=== PATIENT | male | born 2000 | race Two or more races ===

== ENCOUNTER 2025-03-07 13:20 | Emergency (ER) | payer MEDICAID, SELFPAY ==
[2025-03-07 13:49] VITALS: BP 128/82; PULSE 104; RESP 18; TEMP 37.1; O2SAT 96
--- NOTE | 2025-03-07 13:53 | PD.EDSKIN ---
ED Skin Abcess FB-RME/HPI General Chief complaint: Animal Bite Stated complaint: Tick bite Time Seen by Provider: 03/07/25 13:27 Arrival date/time: 03/07/25 13:20 24-year-old male presents to the emergency department today with concerns for insect bite to the right forearm he reports he believes that he had a tick on his arm which he pulled off. Patient reports this happened yesterday and believes that the tick was on for less than 24 hours Limitations: no limitations Related Data Home Medications ?Medication ?Instructions ?Recorded ?Confirmed buspirone 15 mg tablet 15 mg PO BID 01/04/23 01/04/23 escitalopram oxalate 20 mg tablet 20 mg PO DAILY 01/04/23 01/04/23 fluoxetine 20 mg capsule 20 mg PO DAILY 01/04/23 01/04/23 Previous Rx's ?Medication ?Instructions ?Recorded acetaminophen 300 mg-codeine 30 mg 1 tab PO BID PRN pain #10 tabs 01/29/23 tablet amoxicillin 875 mg-potassium 1 tab PO BID #14 tabs 01/29/23 clavulanate 125 mg tablet ferrous sulfate 325 mg (65 mg 325 mg PO BID #90 tabs 01/29/23 iron) tablet clindamycin HCl 300 mg capsule 300 mg PO TID #15 caps 12/03/23 hydrocodone 5 mg-acetaminophen 325 1 tab PO BID PRN pain #6 tabs 12/03/23 mg tablet hydrocortisone acetate 25 mg 25 mg [place] BID #24 ea 12/03/23 rectal suppository (Anusol-HC) Allergies Allergy/AdvReac Type Severity Reaction Status Date / Time No Known Allergies Allergy Verified 03/07/25 13:22 Review of Systems Review of Systems Systems Reviewed: All systems reviewed, normal except as documented Constitutional Constitutional: Reports system reviewed and no additional complaints, except as documented, Denies fever(s) and Denies headache(s) Eyes Eyes: Reports system reviewed and no additional complaints, except as documented and Denies blurry vision ENT Ears, Nose, Mouth, and Throat: Reports system reviewed and no additional complaints, except as documented, Denies headache(s), Denies nasal congestion and Denies nasal discharge Cardiovascular Cardiovascular: Reports system reviewed and no additional complaints, except as documented, Denies chest pain and Denies dyspnea Respiratory Respiratory: Reports system reviewed and no additional complaints, except as documented, Denies chest congestion, Denies cough and Denies dyspnea Gastrointestinal Gastrointestinal: Reports system reviewed and no additional complaints, except as documented and Denies abdominal pain Integumentary/Breasts Skin/Breast: Reports system reviewed and no additional complaints, except as documented, Denies rash and Reports other (Insect bite right forearm) Neurologic Neurologic: Reports system reviewed and no additional complaints, except as documented, Reports as per HPI and Denies headache(s) Past Medical History Past Medical History CARDIAC: Negative Cardiac Disorders or Congestive Heart Failure RESPIRATORY: Negative Chronic Obstructive Pulmonary Disease (COPD) or Asthma GENITOURINARY: Negative Renal Disease ENDOCRINE: Negative Diabetes Mellitus Type 1 or Diabetes Mellitus Type 2 HEMATOLOGIC: Negative Sickle Cell Disease PSYCHO/SOCIAL: Positive Psychiatric Problems OTHER HISTORY: Negative Autoimmune Disease Family History FAMILY HISTORY: Negative Family Psychiatric Problems, Family Respiratory Disorders, Family Cardiac Disorders, Family Gastrointestinal Problems, Family Cancer, Family Surgery or Family Anesthesia Reaction Social History SMOKING STATUS: Light (< 1 pack/day) SUBSTANCE USE: marijuana, crack/cocaine and methamphetamine ED Exam General Limitations: Present no limitations General appearance: Present alert and in no apparent distress Head Head exam: Present atraumatic Eye Eye exam: Present normal appearance, PERRL and EOMI ENT ENT exam: Present normal exam, normal oropharynx and mucous membranes moist Neck Neck exam: Present normal inspection, full ROM and trachea midline Chest Chest inspection: Present normal inspection and symmetric chest wall rise Respiratory Respiratory exam: Present normal lung sounds bilaterally Cardiovascular Cardiovascular exam: Present regular rate, normal rhythm and normal heart sounds Abdominal Exam Abdominal exam: Present soft and normal bowel sounds Extremities Exam Extremities exam: Present full ROM, tenderness and normal capillary refill Back Exam Back exam: Present normal inspection and full ROM Neurological Exam Neurological exam: Present alert, oriented X3 and CN II-XII intact Psychiatric Psychiatric exam: Present normal affect and normal mood Skin Skin exam: Present warm, dry and other (Insect bite right arm) Course Quality Measures none Orders Category Date Time Status Doxycycline [Vibramycin] Med 03/07/25 13:53 Discontinued 200 mg PO X1 ONE Vital Signs Vital signs: Vital Signs Temperature 98.8 F 03/07/25 13:49 Pulse Rate 104 H 03/07/25 13:49 Respiratory Rate 18 03/07/25 13:49 Blood Pressure 128/82 03/07/25 13:49 Pulse Oximetry (%) 96 03/07/25 13:49 Oxygen Delivery Method Room Air 03/07/25 13:49 O2 saturation 96% r.a wnl Skin / Abscess / Foreign Body MDM Narrative MDM Narrative:: 24-year-old male presents to the emergency department today with concerns for insect bite to the right forearm he reports he believes that he had a tick on his arm which he pulled off. Patient reports this happened yesterday and believes that the tick was on for less than 24 hours On exam patient is no evidence of anaphylaxis no evidence of infection Patient was given 1 dose of doxycycline for prophylaxis for Lyme's disease Patient discharged home in no distress to follow-up with primary care doctor in the next 24 to 48 hours and for any worsening symptoms to return to the ER immediately Patient data External records reviewed:: [facility] previous records Clinical information provided by:: patient Social determinants that could affect healthcare access:: none Patient has the following chronic illnesses:: None How is presenting disease/condition affected by chronic disease/condition?: no chronic disease Evaluation data The following diagnostics were reviewed and interpreted by me:: other (specify) (N/A) Lab and/or radiology exams considered but not ordered:: N/A Interpretation Summary: N/A Medications / Prescriptions Medications or Prescriptions considered but not ordered:: Given Medication administrations:: Medication Administration History Discontinued Medications Doxycycline Hyclate (Doxycycline 100 Mg Tablet) 200 mg PO X1 ONE Stop: 03/07/25 13:54 Last Admin: 03/07/25 14:00 Dose: 200 mg Documented By: Given Consultations Consultation(s) initiated? (list below): No Diagnosis Skin/Abscess Differential Diagnosis: abscess of skin or subcutaneous tissue and cellulitis Most likely diagnosis given after review of the tests above:: Tick bite right arm Admission Indicated Admission indicated?: not indicated Admission Request Was there a request for admission?: No Disposition Plan Disposition Plan: Discharge Discharge Attestation Discharge Attestation: The patient and all family members were given an opportunity to ask questions and understood the discharge instructions. Discharge instructions specifically effects, indications for sooner follow up or return to the emergency department, and the expected course of current diagnosis. Patient condition: Stable Discharge Plan Plan Patient Disposition: HOME (Self Care) Discharge Disposition comment: Stable Prescriptions/Referrals Prescriptions/Med Rec: No Action fluoxetine 20 mg capsule 20 mg PO DAILY Patient Comments: TAKE 1 CAPSULE BY MOUTH ONCE DAILY FOR 30 DAYS buspirone 15 mg tablet 15 mg PO BID Patient Comments: TAKE 1 TABLET BY MOUTH TWICE DAILY escitalopram oxalate 20 mg tablet 20 mg PO DAILY Patient Comments: TAKE 1 TABLET BY MOUTH ONCE DAILY ferrous sulfate 325 mg (65 mg iron) tablet 325 mg PO BID Qty: 90 0RF amoxicillin-pot clavulanate 875-125 mg tablet 1 tab PO BID Qty: 14 0RF acetaminophen-codeine 300-30 mg tablet 1 tab PO BID PRN (Reason: pain) Qty: 10 0RF hydrocodone-acetaminophen 5-325 mg tablet 1 tab PO BID MDD 10 PRN (Reason: pain) Qty: 6 0RF hydrocortisone acetate [Anusol-HC] 25 mg suppository 25 mg [place] BID Qty: 24 0RF clindamycin HCl 300 mg capsule 300 mg PO TID Qty: 15 0RF Problem List Clinical Impression: Tick bite of right forearm Patient/Caregiver Discharge Instructions Education Materials: ED Bite Tick Abx Tx Additional Instructions: Please follow up with your primary care doctor in the next 24-48hrs for any worsening symptoms return here immediately Print Language: Bulgarian Stand Alone Forms: Carmen Award Info., Patient Portal Info Letter PA/CREDIT MANAGER Supervising Physician PA/CREDIT MANAGER Supervising Physician: dr montalvo
[2025-03-07] MEDS: DOXYCYCLINE 100 MG TABLET 200 MG PO (14:00)
== END 2025-03-07 14:30 | disposition home or self-care (01) ==
LOC: SERX 14:40
PROVIDERS: Emergency Provider Emergency Medicine
DX: S50.861A Insect bite (nonvenomous) of right forearm, initial encounter (principal); W57.XXXA Bitten or stung by nonvenomous insect and other nonvenomous arthropods, initial encounter
CPT/HCPCS: 99282; A9270

== ENCOUNTER 2025-03-17 00:04 | Emergency (ER) | payer MEDICAID, SELFPAY ==
[2025-03-17 00:06] VITALS: BMI 34.0
[2025-03-17 00:31] VITALS: BP 108/66; PULSE 90; RESP 20; TEMP 36.4; O2SAT 97
--- NOTE | 2025-03-17 00:49 | XR_ITS ---
Examination: CT abdomen with intravenous contrast CT pelvis with intravenous contrast 2-D coronal reconstructions 2-D sagittal reconstructions Date and time of exam:March 17, 2025 0432 hours Comparison December 03, 2023 INDICATIONS: Abdominal pain and urinary retention today. CTDI: vol (mGy) 21 DLP: (mGycm) 1311 Technique: Multiple axial sections of the abdomen and pelvis have been obtained. 64 slice high-resolution scanner used. 3 mm axial sections have been obtained, post intravenous injection 60 cc of Isovue 370 2-D sagittal, coronal reconstructions obtained. Low dose protocols were performed. One or more of the following dose reduction techniques were used; automated exposure control, adjustment of the mA and/or KV according to patient size, use of iterative reconstruction technique. Findings: No focal liver or splenic lesions Contracted gallbladder No pancreatic or adrenal mass. No renal or ureteral calculi, no hydronephrosis Aorta normal size Tiny fat-containing umbilical hernia Normal appendix No bowel obstruction No diverticulitis Urinary bladder Saavedra catheter, irregular wall thickening of the urinary bladder with air density in the urinary bladder No prostatomegaly IMPRESSION: Cystitis pattern
--- NOTE | 2025-03-17 00:51 | PD.EDRME ---
Rapid Medical Screening Exam RME Arrival date/time: 03/17/25 00:04 24M with history of psych, drug, and alcohol use presents to ED with several hours of urinary retention and RLQ pain. Patient admits doing lines of meth today. Chief Complaint: Abdominal Pain Vital signs: Vital Signs Temperature 97.6 F 03/17/25 00:31 Pulse Rate 90 03/17/25 00:31 Respiratory Rate 20 03/17/25 00:31 Blood Pressure 108/66 03/17/25 00:31 Pulse Oximetry (%) 97 03/17/25 00:31 Oxygen Delivery Method Room Air 03/17/25 00:31
[2025-03-17 01:26] LABS: Basophils # (Auto) 0.1 Thou/mm3 (0.0-0.2); Basophils % (Auto) 1 % (0-2.5); Eosinophils # (Auto) 0.1 Thou/mm3 (0.0-0.5); Eosinophils % (Auto) 1 % (0-10); Hematocrit 45.2 % (41.0-53.0); Hemoglobin 15.9 g/dL (13.5-16.0); Immature Granulocytes % (Auto) 1 % (0-0); Immature Granulocytes Auto 0.07 Thou/mm3 (0.00-0.00); Lymphocytes # (Auto) 2.6 Thou/mm3 (1.0-4.8); Lymphocytes % (Auto) 20 % (10-50); Mean Corpuscular HGB Conc 35.2 g/dl (31.0-37.0); Mean Corpuscular Hemoglobin 28.7 pg (25.0-35.0); Mean Corpuscular Volume 82 fL (80-100); Monocytes # (Auto) 1.3 Thou/mm3 (0.0-0.8); Monocytes % (Auto) 10 % (0-12); Neutrophils # (Auto) 8.7 Thou/mm3 (1.8-7.7); Neutrophils % (Auto) 68 % (37-80); Nucleated Red Blood Cell % 0 /100 WBC (0); Platelet Count 304 Thou/mm3 (140-440); Red Blood Count 5.54 Miln/mm3 (4.50-5.90); White Blood Count 12.8 Thou/mm3 (3.8-10.6)
[2025-03-17 01:42] VITALS: BP 136/76; PULSE 89; RESP 16; O2SAT 95
[2025-03-17 01:44] LABS: Collection Type, Urine Catheter; Squamous Epithelial Cell,Urine 0 /hpf (0-5)
[2025-03-17 01:44] LABS: Alanine Aminotransferase 38 U/L (10-49); Albumin, Serum 4.9 gm/dL (3.5-5.0); Albumin/Globulin Ratio 1.9 (1.2-2.2); Alkaline Phosphatase 52 U/L (46-116); Anion Gap 13 (7-16); Aspartate Amino Transferase 21 U/L (0-34); BUN/Creatinine Ratio 12 Ratio (12-20); Bilirubin,Total 0.8 mg/dL (0.3-1.2); Blood Urea Nitrogen 12 mg/dL (9-23); Calcium 9.5 mg/dL (8.3-10.6); Calcium (Corrected) 9.5 mg/dL (8.5-10.1); Carbon Dioxide 25.9 mMol/L (20.0-31.0); Chloride 100 mMol/L (98-107); Estimated Creatinine Clearance 134.4 mL/min (>60); Globulin 2.6 gm/dL (2.3-3.5); Glucose 100 mg/dL (74-106); Lipase 25 U/L (12-53); Osmolality,Calculated 277 (275-295); Potassium 3.7 mMol/L (3.4-5.1); Sodium 139 mMol/L (136-145); Total Protein 7.5 gm/dL (5.7-8.2); eGFR > 60 See Note
[2025-03-17 02:08] LABS: Bilirubin,Urine Negative (Negative); Blood,Urine Negative (Negative); Clarity,Urine Clear (Clear/Hazy); Color,Urine Yellow (Lt Yel-Yel); Glucose, Urine Negative (Negative); Ketones,Urine Trace (Negative); Leukocyte Esterase,Urine Negative (Negative); Nitrite,Urine Negative (Negative); PH,Urine 5.5 (5.0-7.0); Protein,Urine Trace (Neg - Trace); RBC,Urine 15 /hpf (0-3); Specific Gravity,Urine 1.031 (1.001-1.035); WBC,Urine 2 /hpf (0-5)
[2025-03-17 02:11] LABS: Amphetamine/Methamp Scrn,U Positive (Negative); Barbiturate Screen,Urine Negative (Negative); Benzodiazepines Screen,Urine Negative (Negative); Benzoylecgonine Screen, Ur Negative (Negative); Fentanyl Screen,Urine Negative (Negative); Opiate Screen,Urine Negative (Negative); THC Screen,Urine Positive (Negative)
--- NOTE | 2025-03-17 03:22 | PD.EDABDPN ---
ED Abdominal Pain RME/HPI General Chief Complaint: Abdominal Pain Stated complaint: UNABLE TO URINATE FOR 10 HOURS Time seen by provider: 03/17/25 01:45 Arrival date/time: 03/17/25 00:04 RME / HPI RME / HPI narrative: 03/17/25 00:04 24M with history of psych, drug, and alcohol use presents to ED with several hours of urinary retention and RLQ pain. Patient admits doing lines of meth today. DR BONDS MAIN ED EVALUATION: 24 y/o male with Hx of recreational drug use presents to ED RLQ abdominal pain with sweats and urinary retention x 1 day. Patient admits to methamphetamine use MANAGER ER. Patient denies fever, chills, nausea, vomiting, or any other associated symptoms or aggravating factors. No modifying factors, no radiation, no migration. No severe pain reported overall. Related Data Home Medications ?Medication ?Instructions ?Recorded ?Confirmed buspirone 15 mg tablet 15 mg PO BID 01/04/23 01/04/23 escitalopram oxalate 20 mg tablet 20 mg PO DAILY 01/04/23 01/04/23 fluoxetine 20 mg capsule 20 mg PO DAILY 01/04/23 01/04/23 Previous Rx's ?Medication ?Instructions ?Recorded acetaminophen 300 mg-codeine 30 mg 1 tab PO BID PRN pain #10 tabs 01/29/23 tablet amoxicillin 875 mg-potassium 1 tab PO BID #14 tabs 01/29/23 clavulanate 125 mg tablet ferrous sulfate 325 mg (65 mg 325 mg PO BID #90 tabs 01/29/23 iron) tablet clindamycin HCl 300 mg capsule 300 mg PO TID #15 caps 12/03/23 hydrocodone 5 mg-acetaminophen 325 1 tab PO BID PRN pain #6 tabs 12/03/23 mg tablet hydrocortisone acetate 25 mg 25 mg [place] BID #24 ea 12/03/23 rectal suppository (Anusol-HC) Allergies Allergy/AdvReac Type Severity Reaction Status Date / Time No Known Allergies Allergy Verified 03/17/25 00:06 Review of Systems Review of Systems Systems Reviewed: All systems reviewed, normal except as documented Past Medical History Past Medical History PSYCHO/SOCIAL: Positive Psychiatric Problems Social History SMOKING STATUS: Current every day smoker SUBSTANCE USE: marijuana, crack/cocaine and methamphetamine ED Exam Narrative Physical exam: GENERAL APPEARANCE: alert and oriented x 4, well-developed, well-nourished, no acute distress VITALS: All vitals were reviewed and the pulse ox is 95% on room air, which is normal according to my interpretation. HEENT: Normocephalic, atraumatic; pupils equal, dilated, reactive to light; EOMI; mucous membranes pink, moist; oropharynx clear NECK: Supple LUNGS: CTABL; no wheezes, no rales, no rhonchi HEART: Regular rate, regular rhythm; normal S1, S2; no murmurs ABDOMEN: non distended; normal BS; soft, RLQ tenderness, no guarding, no rebound; no masses, no organomegaly, no hernia BACK: no CVA tenderness EXTREMITIES: atraumatic; no edema NEUROLOGIC: awake; alert and oriented x4; cranial nerves II-XII grossly intact; no focal sensory or motor deficits PSYCHIATRIC: appropriate mood and affect SKIN: warm, dry, normal color; no rashes Course Quality Measures none Orders Category Date Time Status CT Screening NOW Care 03/17/25 00:50 Active Catheter [Urinary Catheter] QS Care 03/17/25 00:50 Active Saavedra to Leg Bag Routine Care 03/17/25 00:51 Ordered Insert IV NOW Care 03/17/25 00:[address] abdomen pelvis w con Stat Exams 03/17/25 00:49 Taken CBC Stat Lab 03/17/25 01:00 Completed CMP [Comprehensive Metabolic Panel] Stat Lab 03/17/25 01:00 Completed Drug Screen,Urine Stat Lab 03/17/25 01:37 Completed Lipase Stat Lab 03/17/25 01:00 Completed Urinalysis Stat Lab 03/17/25 01:37 Completed Urine Culture Stat Lab 03/17/25 01:37 Received Vital Signs Vital signs: Vital Signs Temperature 97.6 F 03/17/25 00:31 Pulse Rate 90 03/17/25 00:31 Respiratory Rate 20 03/17/25 00:31 Blood Pressure 108/66 03/17/25 00:31 Pulse Oximetry (%) 97 03/17/25 00:31 Oxygen Delivery Method Room Air 03/17/25 00:31 Abdominal Pain MDM MDM Narrative MDM Narrative:: Scribe Attestation: Sol Foster am scribing for and in the presence of Dr. Bonds. Provider Notation: Although this document has been carefully reviewed, there may still be some phonetic and other typographical errors.? These errors are purely grammatical due to imperfections in the software program and should not be construed in any way to? compromise the substance of the patient's medical care during this visit. Patient data External records reviewed:: [facility] previous records (Reviewed prior ED records from 03/07/25. Patient was seen for Tick bite of right forearm.) Clinical information provided by:: patient Social determinants that could affect healthcare access:: substance use (Methamphetamine, Cocaine, Marijuana) Patient has the following chronic illnesses:: Recreational drug use How is presenting disease/condition affected by chronic disease/condition?: exacerbated by Evaluation data The following diagnostics were reviewed and interpreted by me:: lab results and radiology exam(s) Lab and/or radiology exams considered but not ordered:: None Interpretation Summary: RADIOLOGY Abdomen/Pelvis CT: Pending official radiology report. Medications / Prescriptions Medications or Prescriptions considered but not ordered:: None Medication administrations:: See above if any. Consultations Consultation(s) initiated? (list below): No Diagnosis Differential diagnosis abdominal pain: abdominal pain, acute appendicitis, diverticulitis, gastroenteritis, small bowel obstruction and other (urine retention, UTI, Kidney stone) Most likely diagnosis given after review of the tests above:: Right lower quadrant abdominal pain Admission Indicated Admission indicated?: not indicated Explain why admission is indicated or not indicated:: Pending CT results. Signed-out to Dr. Nunez. Admission Request Was there a request for admission?: No Disposition Plan Disposition Plan: other (specify) (Sign-out to Dr. Nunez at 6 AM.) Discharge Plan Prescriptions/Referrals Prescriptions/Med Rec: No Action fluoxetine 20 mg capsule 20 mg PO DAILY Patient Comments: TAKE 1 CAPSULE BY MOUTH ONCE DAILY FOR 30 DAYS buspirone 15 mg tablet 15 mg PO BID Patient Comments: TAKE 1 TABLET BY MOUTH TWICE DAILY escitalopram oxalate 20 mg tablet 20 mg PO DAILY Patient Comments: TAKE 1 TABLET BY MOUTH ONCE DAILY ferrous sulfate 325 mg (65 mg iron) tablet 325 mg PO BID Qty: 90 0RF amoxicillin-pot clavulanate 875-125 mg tablet 1 tab PO BID Qty: 14 0RF acetaminophen-codeine 300-30 mg tablet 1 tab PO BID PRN (Reason: pain) Qty: 10 0RF hydrocodone-acetaminophen 5-325 mg tablet 1 tab PO BID MDD 10 PRN (Reason: pain) Qty: 6 0RF hydrocortisone acetate [Anusol-HC] 25 mg suppository 25 mg [place] BID Qty: 24 0RF clindamycin HCl 300 mg capsule 300 mg PO TID Qty: 15 0RF Referrals: Phani Dye MD [Primary Care Provider] - In 1 week Problem List Clinical Impression: Right lower quadrant abdominal pain Patient/Caregiver Discharge Instructions Print Language: Malagasy
[2025-03-17 05:18] VITALS: BP 133/71; PULSE 64; RESP 17; TEMP 36.7; O2SAT 96
--- NOTE | 2025-03-17 06:34 | PD.EDADDENDU ---
Emergency Room Addendum Addendum Narrative: 0600: Care assumed from Dr. Bonds, the previous shift emergency physician. Past medical, surgical, social and family history reviewed. Vitals and home medications reviewed. I will assume the care of the patient at this time, pending diagnostic tests and final disposition. Please refer to the emergency department record for history and examination from initial visit.? Physical exam by me shows patient under no acute distress at this time. 0800: Patient remains clinically stable throughout the emergency department visit. Re-assessment at the time of disposition demonstrates that the patient is in no acute distress. We reviewed all the results, analysis, and treatment plans. Patient is amenable to discharge. Strict return precautions were outlined. Patient was discharged in stable condition. Diagnoses: - Right lower quadrant abdominal pain Results Objective Laboratory: Laboratory Last Values WBC 12.8 Thou/mm3 (3.8-10.6) H 03/17/25 01:00 RBC 5.54 Miln/mm3 (4.50-5.90) 03/17/25 01:00 Hgb 15.9 g/dL (13.5-16.0) 03/17/25 01:00 Hct 45.2 % (41.0-53.0) 03/17/25 01:00 MCV 82 fL (80-100) 03/17/25 01:00 MCH 28.7 pg (25.0-35.0) 03/17/25 01:00 MCHC 35.2 g/dl (31.0-37.0) 03/17/25 01:00 RDW Std Deviation 39.0 fL (35.1-43.9) 03/17/25 01:00 Plt Count 304 Thou/mm3 (140-440) 03/17/25 01:00 Neut % (Auto) 68 % (37-80) 03/17/25 01:00 Lymph % (Auto) 20 % (10-50) 03/17/25 01:00 Lewis % (Auto) 10 % (0-12) 03/17/25 01:00 Eos % (Auto) 1 % (0-10) 03/17/25 01:00 Baso % (Auto) 1 % (0-2.5) 03/17/25 01:00 Neut # (Auto) 8.7 Thou/mm3 (1.8-7.7) H 03/17/25 01:00 Lymph # (Auto) 2.6 Thou/mm3 (1.0-4.8) 03/17/25 01:00 Lewis # (Auto) 1.3 Thou/mm3 (0.0-0.8) H 03/17/25 01:00 Eos # (Auto) 0.1 Thou/mm3 (0.0-0.5) 03/17/25 01:00 Baso # (Auto) 0.1 Thou/mm3 (0.0-0.2) 03/17/25 01:00 Immature Gran # (Auto) 0.07 Thou/mm3 (0.00-0.00) H 03/17/25 01:00 Absolute Nucleated RBC 0.00 Thou/mm3 (0.00-0.00) 03/17/25 01:00 Immature Gran % 1 % (0-0) H 03/17/25 01:00 Nucleated RBC % 0 /100 WBC (0) 03/17/25 01:00 Sodium 139 mMol/L (136-145) 03/17/25 01:00 Potassium 3.7 mMol/L (3.4-5.1) 03/17/25 01:00 Chloride 100 mMol/L (98-107) 03/17/25 01:00 Carbon Dioxide 25.9 mMol/L (20.0-31.0) 03/17/25 01:00 Anion Gap 13 (7-16) 03/17/25 01:00 BUN 12 mg/dL (9-23) 03/17/25 01:00 Creatinine 1.0 mg/dL (0.6-1.3) 03/17/25 01:00 Estim Creat Clear Calc 134.4 mL/min (>60) 03/17/25 01:00 eGFR > 60 See Note (60-) 03/17/25 01:00 BUN/Creatinine Ratio 12 Ratio (12-20) 03/17/25 01:00 Glucose 100 mg/dL (74-106) 03/17/25 01:00 Calculated Osmolality 277 (275-295) 03/17/25 01:00 Calcium 9.5 mg/dL (8.3-10.6) 03/17/25 01:00 Corrected Calcium 9.5 mg/dL (8.5-10.1) 03/17/25 01:00 Total Bilirubin 0.8 mg/dL (0.3-1.2) 03/17/25 01:00 AST 21 U/L (0-34) 03/17/25 01:00 ALT 38 U/L (10-49) 03/17/25 01:00 Alkaline Phosphatase 52 U/L (46-116) 03/17/25 01:00 Total Protein 7.5 gm/dL (5.7-8.2) 03/17/25 01:00 Albumin 4.9 gm/dL (3.5-5.0) 03/17/25 01:00 Globulin 2.6 gm/dL (2.3-3.5) 03/17/25 01:00 Albumin/Globulin Ratio 1.9 (1.2-2.2) 03/17/25 01:00 Lipase 25 U/L (12-53) 03/17/25 01:00 Ur Collection Type Catheter 03/17/25 01:37 Urine Color Yellow (Lt Yel-Yel) 03/17/25 01:37 Urine Clarity Clear (Clear/Hazy) 03/17/25 01:37 Urine pH 5.5 (5.0-7.0) 03/17/25 01:37 Ur Specific [place] 1.031 (1.001-1.035) 03/17/25 01:37 Urine Protein Trace (Neg - Trace) 03/17/25 01:37 Urine Glucose (UA) Negative (Negative) 03/17/25 01:37 Urine Ketones Trace (Negative) 03/17/25 01:37 Urine Blood Negative (Negative) 03/17/25 01:37 Urine Nitrite Negative (Negative) 03/17/25 01:37 Urine Bilirubin Negative (Negative) 03/17/25 01:37 Urine Urobilinogen (Auto) 2.0 mg/dL (0.0-1.0) 03/17/25 01:37 Ur Leukocyte Esterase Negative (Negative) 03/17/25 01:37 Urine RBC 15 /hpf (0-3) H 03/17/25 01:37 Urine WBC 2 /hpf (0-5) 03/17/25 01:37 Ur Squamous Epith Cells 0 /hpf (0-5) 03/17/25 01:37 Urine Bacteria None (None) 03/17/25 01:37 Urine Opiates Screen Negative (Negative) 03/17/25 01:37 Urine Fentanyl Screen Negative (Negative) 03/17/25 01:37 Ur Barbiturates Screen Negative (Negative) 03/17/25 01:37 U Amphetamin/Meth Scrn Positive (Negative) A 03/17/25 01:37 U Benzodiazepines Scrn Negative (Negative) 03/17/25 01:37 U Cocaine Metab Screen Negative (Negative) 03/17/25 01:37 U Marijuana (THC) Screen Positive (Negative) A 03/17/25 01:37 Imaging: Procedure(s): CT abdomen pelvis w con Accession Number(s): [id number] cc: Phani Dye MD; Mick Ricardo MD; Isidro Brennan PA-C~ Examination: CT abdomen with intravenous contrast CT pelvis with intravenous contrast 2-D coronal reconstructions 2-D sagittal reconstructions Date and time of exam:March 17, 2025 0432 hours Comparison December 03, 2023 INDICATIONS: Abdominal pain and urinary retention today. CTDI: vol (mGy) 21 DLP: (mGycm) 1311 Technique: Multiple axial sections of the abdomen and pelvis have been obtained. 64 slice high-resolution scanner used. 3 mm axial sections have been obtained, post intravenous injection 60 cc of Isovue 370 2-D sagittal, coronal reconstructions obtained. Low dose protocols were performed. One or more of the following dose reduction techniques were used; automated exposure control, adjustment of the mA and/or KV according to patient size, use of iterative reconstruction technique. Findings: No focal liver or splenic lesions Contracted gallbladder No pancreatic or adrenal mass. No renal or ureteral calculi, no hydronephrosis Aorta normal size Tiny fat-containing umbilical hernia Normal appendix No bowel obstruction No diverticulitis Urinary bladder Saavedra catheter, irregular wall thickening of the urinary bladder with air density in the urinary bladder No prostatomegaly IMPRESSION: Cystitis pattern Dictated By: Mick Ricardo MD
[2025-03-17 08:23] VITALS: BP 92/76; PULSE 60; RESP 18; TEMP 36.8; O2SAT 96
[2025-03-17] MEDS: cefTRIAXone 1,000 MG, LIDOCAINE 1% 20 ML 2.1 ML IM (09:17)
[2025-03-17] MEDS: TAMSULOSIN HCL 0.4 MG CAPSULE 0.8 MG PO (09:17)
[2025-03-17 10:28] VITALS: BP 126/65; PULSE 65; RESP 16; TEMP 36.7; O2SAT 97
== END 2025-03-17 11:02 | disposition home or self-care (01) ==
PROVIDERS: Physician Assistant; Emergency Provider Emergency Medicine; PCP Family Medicine
DX: R10.31 Right lower quadrant pain (principal); R33.9 Retention of urine, unspecified; K42.9 Umbilical hernia without obstruction or gangrene
CPT/HCPCS: 51702; 36415; 74177; 80053; 80307; 81001; 83690; 85025; 87086; 96372; 99285; A4314; A4649; J0696; J3490; Q9967; A9270

== ENCOUNTER 2025-09-10 14:55 | Emergency (ER) | payer MEDICAID, SELFPAY ==
[2025-09-10 15:04] VITALS: BP 122/81; PULSE 114; RESP 18; TEMP 36.7; O2SAT 97
--- NOTE | 2025-09-10 15:09 | PD.EDABDPN ---
ED Abdominal Pain RME/HPI General Chief Complaint: General Adult/Misc Complain Stated complaint: FELT POP IN R) SIDE, LOST HEARING & VISION Time seen by provider: 09/10/25 15:10 Arrival date/time: 09/10/25 14:55 RME / HPI RME / HPI narrative: See [facility] for Dr. Berger's HPI Documentation. Related Data Home Medications ?Medication ?Instructions ?Recorded ?Confirmed buspirone 15 mg tablet 15 mg PO BID 01/04/23 01/04/23 escitalopram oxalate 20 mg tablet 20 mg PO DAILY 01/04/23 01/04/23 fluoxetine 20 mg capsule 20 mg PO DAILY 01/04/23 01/04/23 Previous Rx's ?Medication ?Instructions ?Recorded acetaminophen 300 mg-codeine 30 mg 1 tab PO BID PRN pain #10 tabs 01/29/23 tablet amoxicillin 875 mg-potassium 1 tab PO BID #14 tabs 01/29/23 clavulanate 125 mg tablet ferrous sulfate 325 mg (65 mg 325 mg PO BID #90 tabs 01/29/23 iron) tablet clindamycin HCl 300 mg capsule 300 mg PO TID #15 caps 12/03/23 hydrocodone 5 mg-acetaminophen 325 1 tab PO BID PRN pain #6 tabs 12/03/23 mg tablet hydrocortisone acetate 25 mg 25 mg [place] BID #24 ea 12/03/23 rectal suppository (Anusol-HC) ciprofloxacin HCl 500 mg tablet 500 mg PO BID #10 tabs 03/17/25 (Cipro) Allergies Allergy/AdvReac Type Severity Reaction Status Date / Time No Known Allergies Allergy Verified 09/10/25 18:37 Review of Systems Review of Systems Systems Reviewed: All systems reviewed, normal except as documented Past Medical History Past Medical History PSYCHO/SOCIAL: Positive Psychiatric Problems and Recreational Drug Use Social History SMOKING STATUS: Current every day smoker SUBSTANCE USE: marijuana, crack/cocaine and methamphetamine ED Exam Narrative Physical exam: See [facility] for Dr. Berger's Physical Exam Documentation. Course Quality Measures none Orders Category Date Time Status CT abdomen pelvis wo con Stat Exams 09/10/25 15:[address] head/brain wo con Stat Exams 09/10/25 15:11 Ordered Vital Signs Vital signs: Vital Signs Temperature 98.1 F 09/10/25 15:04 Pulse Rate 114 H 09/10/25 15:04 Respiratory Rate 18 09/10/25 15:04 Blood Pressure 122/81 09/10/25 15:04 Pulse Oximetry (%) 97 09/10/25 15:04 Oxygen Delivery Method Room Air 09/10/25 15:04 Abdominal Pain MDM MDM Narrative MDM Narrative:: This section includes all my notes and documentations, including HPI, PE, and ED course. Amandeep Berger MD HPI: 25 y/o male with Hx of Marijuana/Crack/Cocaine/Methamphetamine use presents with sudden RLQ abdominal pain s/p eating chicken approximately 30 minutes ago. Had brief episode of not being able to see or hear. Currently, no decreased vision or hearing. No headache or dizziness. No speech impairment. No loss of power in the arms or legs. No chest pain. No nausea or vomiting. No other complaints. ROS: All negative except as documented in HPI. Physical Exam: General: Alert and oriented. No acute distress. Eyes: Conjunctivae and lids clear. EOMI. PERRL. ENT: No nasal congestion. Pharynx normal. Tympanic membrane normal bilaterally. Neck: Supple. No carotid bruit. No JVD. Heart: RRR. Lungs: No respiratory distress. Good air movement. No rhonchi, wheezing, rales. Abdomen: Soft and nontender. Normal bowel sounds. No distension. No rebound or guarding. Back: No CVA tenderness. Legs: No clubbing, cyanosis, edema. Skin: Warm and dry. Neuro: Alert and oriented X 3. Cranial Nerves II-XII grossly intact. No peripheral motor deficits. I interpret diagnostic tests. I was told the patient eloped after declining diagnostic tests. Amandeep Berger MD Patient data External records reviewed:: [facility] previous records (Reviewed prior ED records from 03/17/25. Patient was seen for Right lower quadrant abdominal pain.) Clinical information provided by:: patient Social determinants that could affect healthcare access:: substance use (Marijuana, Crack/Cocaine, Methamphetamine) Patient has the following chronic illnesses:: Recreational Drug Use How is presenting disease/condition affected by chronic disease/condition?: exacerbated by Evaluation data The following diagnostics were reviewed and interpreted by me:: other (specify) (N/A) Lab and/or radiology exams considered but not ordered:: None Interpretation Summary: Patient declined diagnostic tests I ordered and eloped. Medications / Prescriptions Medications or Prescriptions considered but not ordered:: None Medication administrations:: None Consultations Consultation(s) initiated? (list below): No Diagnosis Differential diagnosis abdominal pain: acute appendicitis, calculus of kidney, constipation, diverticulitis, gastroenteritis, pancreatitis and small bowel obstruction Most likely diagnosis given after review of the tests above:: Abdominal Pain of unclear etiology Admission Indicated Admission indicated?: not indicated Explain why admission is indicated or not indicated:: Patient eloped Admission Request Was there a request for admission?: No Disposition Plan Disposition Plan: other (specify) (Patient eloped) Discharge Plan Plan Patient Disposition: Elopement Discharge Disposition comment: pt walked out of ed at this time. Prescriptions/Referrals Prescriptions/Med Rec: No Action fluoxetine 20 mg capsule 20 mg PO DAILY Patient Comments: TAKE 1 CAPSULE BY MOUTH ONCE DAILY FOR 30 DAYS buspirone 15 mg tablet 15 mg PO BID Patient Comments: TAKE 1 TABLET BY MOUTH TWICE DAILY escitalopram oxalate 20 mg tablet 20 mg PO DAILY Patient Comments: TAKE 1 TABLET BY MOUTH ONCE DAILY ferrous sulfate 325 mg (65 mg iron) tablet 325 mg PO BID Qty: 90 0RF amoxicillin-pot clavulanate 875-125 mg tablet 1 tab PO BID Qty: 14 0RF acetaminophen-codeine 300-30 mg tablet 1 tab PO BID PRN (Reason: pain) Qty: 10 0RF hydrocodone-acetaminophen 5-325 mg tablet 1 tab PO BID MDD 10 PRN (Reason: pain) Qty: 6 0RF hydrocortisone acetate [Anusol-HC] 25 mg suppository 25 mg W[place] BID Qty: 24 0RF ciprofloxacin HCl [Cipro] 500 mg tablet 500 mg PO BID Qty: 10 0RF clindamycin HCl 300 mg capsule 300 mg PO TID Qty: 15 0RF Referrals: Phani Dye MD [Primary Care Provider, Family Practice] - In 1 week Problem List Clinical Impression: Abdominal pain Patient/Caregiver Discharge Instructions Print Language: Citizen [place]
--- NOTE | 2025-09-10 17:11 | PC.NURSE ---
Pt states he had a bowel movement and feels better and no longer wants to have a CT and will be going home.
--- NOTE | 2025-09-10 18:33 | PC.NURSE ---
PT CALLED; NO ANSWER X 1.
== END 2025-09-10 18:33 | disposition left against medical advice (07) ==
PROVIDERS: Emergency Provider Emergency Medicine; PCP Family Medicine
DX: R10.31 Right lower quadrant pain (principal); Z53.29 Procedure and treatment not carried out because of patient's decision for other reasons
CPT/HCPCS: 80053; 80307; 80320; 81001; 82248; 83690; 83735; 84443; 84484; 85025; 99281; G0480

== ENCOUNTER 2025-09-10 18:34 | Emergency (ER) | payer MEDICAID, SELFPAY ==
[2025-09-10 19:06] VITALS: BP 120/71; PULSE 84; RESP 20; TEMP 36.7; O2SAT 98
--- NOTE | 2025-09-10 19:06 | PD.EDABDPN ---
ED Abdominal Pain RME/HPI General Chief Complaint: Abdominal Pain Stated complaint: RLQ ABD PAIN 06/13 Time seen by provider: 09/10/25 18:38 Arrival date/time: 09/10/25 18:34 RME / HPI RME / HPI narrative: See [facility] for Dr. Berger's HPI Documentation. Related Data Home Medications ?Medication ?Instructions ?Recorded ?Confirmed buspirone 15 mg tablet 15 mg PO BID 01/04/23 01/04/23 escitalopram oxalate 20 mg tablet 20 mg PO DAILY 01/04/23 01/04/23 fluoxetine 20 mg capsule 20 mg PO DAILY 01/04/23 01/04/23 Previous Rx's ?Medication ?Instructions ?Recorded acetaminophen 300 mg-codeine 30 mg 1 tab PO BID PRN pain #10 tabs 01/29/23 tablet amoxicillin 875 mg-potassium 1 tab PO BID #14 tabs 01/29/23 clavulanate 125 mg tablet ferrous sulfate 325 mg (65 mg 325 mg PO BID #90 tabs 01/29/23 iron) tablet clindamycin HCl 300 mg capsule 300 mg PO TID #15 caps 12/03/23 hydrocodone 5 mg-acetaminophen 325 1 tab PO BID PRN pain #6 tabs 12/03/23 mg tablet hydrocortisone acetate 25 mg 25 mg [place] BID #24 ea 12/03/23 rectal suppository (Anusol-HC) ciprofloxacin HCl 500 mg tablet 500 mg PO BID #10 tabs 03/17/25 (Cipro) Allergies Allergy/AdvReac Type Severity Reaction Status Date / Time No Known Allergies Allergy Verified 09/10/25 18:37 Review of Systems Review of Systems Systems Reviewed: All systems reviewed, normal except as documented Past Medical History Past Medical History PSYCHO/SOCIAL: Positive Psychiatric Problems and Recreational Drug Use Social History SMOKING STATUS: Current every day smoker SUBSTANCE USE: marijuana, crack/cocaine and methamphetamine ED Exam Narrative Physical exam: See [facility] for Dr. Berger's Physical Exam Documentation. Course Quality Measures none Orders Category Date Time Status CT abdomen pelvis wo con Stat Exams 09/10/25 19:[address] head/brain wo con Stat Exams 09/10/25 19:17 Completed Alcohol, Blood Medical Stat Lab 09/10/25 19:23 Completed Bilirubin,Direct Stat Lab 09/10/25 19:23 Completed CBC Stat Lab 09/10/25 19:23 Completed CMP [Comprehensive Metabolic Panel] Stat Lab 09/10/25 19:23 Completed Drug Screen,Urine Stat Lab 09/10/25 19:25 Completed Lipase Stat Lab 09/10/25 19:23 Completed Magnesium Stat Lab 09/10/25 19:23 Completed Vital Signs Vital signs: Vital Signs Temperature 98.0 F 09/10/25 19:06 Pulse Rate 84 09/10/25 19:06 Respiratory Rate 20 09/10/25 19:06 Blood Pressure 120/71 09/10/25 19:06 Pulse Oximetry (%) 98 09/10/25 19:06 Oxygen Delivery Method Room Air 09/10/25 19:06 Abdominal Pain MDM MDM Narrative MDM Narrative:: This section includes all my notes and documentations, including HPI, PE, and ED course. Amandeep Berger MD HPI: 25 y/o male with Hx of Marijuana/Crack/Cocaine/Methamphetamine use presents with sudden RLQ abdominal pain s/p eating chicken approximately 30 minutes ago. Had brief episode of not being able to see or hear. Currently, no decreased vision or hearing. No headache or dizziness. No speech impairment. No loss of power in the arms or legs. No chest pain. No nausea or vomiting. I saw him earlier today but he eloped before diagnostic tests. No other complaints. ROS: All negative except as documented in HPI. Physical Exam: General: Alert and oriented. No acute distress. Eyes: Conjunctivae and lids clear. EOMI. PERRL. ENT: No nasal congestion. Pharynx normal. Tympanic membrane normal bilaterally. Neck: Supple. No carotid bruit. No JVD. Heart: RRR. Lungs: No respiratory distress. Good air movement. No rhonchi, wheezing, rales. Abdomen: Soft and nontender. Normal bowel sounds. No distension. No rebound or guarding. Back: No CVA tenderness. Legs: No clubbing, cyanosis, edema. Skin: Warm and dry. Neuro: Alert and oriented X 3. Cranial Nerves II-XII grossly intact. No peripheral motor deficits. I reviewed all diagnostic test results: My review of the Head/Brain CT report is: No acute findings. My review of the Abdomen/Pelvis CT report is: No acute findings. Blood tests and urine tests remarkable for positive UDS for methamphetamine and marijuana. At this point, diagnoses include: Methamphetamine and marijuana use Recommended more outpatient workup. Based on my best medical judgment, made decision no further evaluation or treatment indicated at this time. Patient understands and agrees to the discharge instructions customized and printed, see below. Discharge Instructions from Dr. Berger printed for you: 1. After extensive evaluation, exact cause of your headache and abdominal pain was not determined. But there is no life-threatening condition. Such as stroke or brain tumor. And there is no emergent cause of your abdominal pain, such as appendicitis needing urgent surgery. 2. But you are intoxicated from methamphetamine. To avoid serious future injuries and illnesses, some even fatal, avoid methamphetamine and all other drugs. 3. See a private doctor on 09/11/2025 for recheck. To make sure there is no serious intra-abdominal condition, ask for help with more investigation not available here in the ER. Such as EGD or scoping the stomach, colonoscopy or scoping the colon, and referral to see manager of global. Ask for help with MRI imaging of the brain and referral to see neurologist, to make sure there is no serious cause of your headache. Ask for help to quit methamphetamine and other drugs if applicable. 4. Seek immediate medical care with worsening or with any concerns. Amandeep Berger MD Patient data External records reviewed:: [facility] previous records (Patient seen earlier today for Abdominal pain.) Clinical information provided by:: patient Social determinants that could affect healthcare access:: substance use (Marijuana, Crack/Cocaine, and Methamphetamine) Patient has the following chronic illnesses:: Recreational Drug use How is presenting disease/condition affected by chronic disease/condition?: exacerbated by Evaluation data The following diagnostics were reviewed and interpreted by me:: lab results and radiology exam(s) Lab and/or radiology exams considered but not ordered:: None Interpretation Summary: I reviewed all diagnostic test results: My review of the Head/Brain CT report is: No acute findings. My review of the Abdomen/Pelvis CT report is: No acute findings. Blood tests and urine tests remarkable for positive UDS for methamphetamine and marijuana. Medications / Prescriptions Medications or Prescriptions considered but not ordered:: None Medication administrations:: None Consultations Consultation(s) initiated? (list below): No Diagnosis Differential diagnosis abdominal pain: abdominal pain, acute appendicitis, calculus of kidney, constipation, diverticulitis, gastroenteritis, pancreatitis and small bowel obstruction Most likely diagnosis given after review of the tests above:: Methamphetamine and marijuana use Admission Indicated Admission indicated?: not indicated Explain why admission is indicated or not indicated:: With no condition needing emergent intervention, there was no indication for admission. Admission Request Was there a request for admission?: No Disposition Plan Disposition Plan: Discharge Discharge Attestation Discharge Attestation: The patient and all family members were given an opportunity to ask questions and understood the discharge instructions. Discharge instructions specifically effects, indications for sooner follow up or return to the emergency department, and the expected course of current diagnosis. Patient condition: Stable Discharge Plan Plan Patient Disposition: HOME (Self Care) Prescriptions/Referrals Prescriptions/Med Rec: No Action fluoxetine 20 mg capsule 20 mg PO DAILY Patient Comments: TAKE 1 CAPSULE BY MOUTH ONCE DAILY FOR 30 DAYS buspirone 15 mg tablet 15 mg PO BID Patient Comments: TAKE 1 TABLET BY MOUTH TWICE DAILY escitalopram oxalate 20 mg tablet 20 mg PO DAILY Patient Comments: TAKE 1 TABLET BY MOUTH ONCE DAILY ferrous sulfate 325 mg (65 mg iron) tablet 325 mg PO BID Qty: 90 0RF amoxicillin-pot clavulanate 875-125 mg tablet 1 tab PO BID Qty: 14 0RF acetaminophen-codeine 300-30 mg tablet 1 tab PO BID PRN (Reason: pain) Qty: 10 0RF hydrocodone-acetaminophen 5-325 mg tablet 1 tab PO BID MDD 10 PRN (Reason: pain) Qty: 6 0RF hydrocortisone acetate [Anusol-HC] 25 mg suppository 25 mg OR BID Qty: 24 0RF ciprofloxacin HCl [Cipro] 500 mg tablet 500 mg PO BID Qty: 10 0RF clindamycin HCl 300 mg capsule 300 mg PO TID Qty: 15 0RF Referrals: Phani Dye MD [Primary Care Provider, Family Practice] - In 1 week Problem List Clinical Impression: Methamphetamine intoxication Patient/Caregiver Discharge Instructions Discharge Activity: activity as tolerated Education Materials: Abdominal Pain, Understanding Methamphetamine ..., Understanding Headache Pain Additional Instructions: Discharge Instructions from Dr. Berger printed for you: 1. After extensive evaluation, exact cause of your headache and abdominal pain was not determined. But there is no life-threatening condition. Such as stroke or brain tumor. And there is no emergent cause of your abdominal pain, such as appendicitis needing urgent surgery. 2. But you are intoxicated from methamphetamine. To avoid serious future injuries and illnesses, some even fatal, avoid methamphetamine and all other drugs. 3. See a private doctor on 09/11/2025 for recheck. To make sure there is no serious intra-abdominal condition, ask for help with more investigation not available here in the ER. Such as EGD or scoping the stomach, colonoscopy or scoping the colon, and referral to see manager of global. Ask for help with MRI imaging of the brain and referral to see neurologist, to make sure there is no serious cause of your headache. Ask for help to quit methamphetamine and other drugs if applicable. 4. Seek immediate medical care with worsening or with any concerns. Print Language: [place] Stand Alone Forms: [employer] Award Info., Patient Portal Info Letter
--- NOTE | 2025-09-10 19:17 | XR_ITS ---
Examination: CT abdomen and pelvis without contrast. Coronal 3-D reconstructions. Sagittal 2-D reconstructions. Date and time of exam: September 10, 2025, 2124 hours INDICATIONS: Right lower abdominal pain beginning 1 week ago COMPARISON: March 17, 2025 CTDI: vol (mGy): 11.7 DLP: (mGycm): 688 Technique: Axial images of the abdomen have been obtained, 3 mm slice thickness Intravenous contrast material has not been administered. Low dose protocols were performed. One or more of the following dose reduction techniques were used; automated exposure control, adjustment of the mA and/or KV according to patient size, use of iterative reconstruction technique. Findings: No focal liver or splenic lesions No gallstones No pancreatic or adrenal mass No renal or ureteral calculi, no hydronephrosis Aorta normal size No pericecal inflammatory change No bowel obstruction or diverticulitis Urinary bladder intact No prostatomegaly Atrophic appendix IMPRESSION: No acute process in the abdomen or pelvis
--- NOTE | 2025-09-10 19:17 | XR_ITS ---
Examination: CT brain head without contrast. 2-D sagittal coronal reconstructions Date and time of exam: September 10, 2025, 2119 hours INDICATION: Loss of hearing and vision today CTDI: vol (mGy): 56.7 DLP: (mGycm): 1117 Technique: Multiple CT axial sections of the brain have been obtained, 5 mm slice thickness. Contrast has not been administered. 2-D sagittal, coronal reconstructions have been obtained Low dose protocols were performed. One or more of the following dose reduction techniques were used; automated exposure control, adjustment of the mA and/or KV according to patient size, use of iterative reconstruction technique. Findings: No significant ventricular enlargement. Intra-axial or extra-axial hemorrhage density is not seen. No mass effect or midline shift Basal cisterns are not remarkable. Fourth ventricle is midline. Cranial vault intact. Impression: Negative for acute hemorrhage, mass effect or midline shift Given the patient's presentation, consider brain MRI follow-up
[2025-09-10 19:37] LABS: Basophils # (Auto) 0.1 Thou/mm3 (0.0-0.2); Basophils % (Auto) 1 % (0-2.5); Eosinophils # (Auto) 0.0 Thou/mm3 (0.0-0.5); Eosinophils % (Auto) 0 % (0-10); Hematocrit 48.7 % (41.0-53.0); Hemoglobin 16.0 g/dL (13.5-16.0); Immature Granulocytes Auto 0.04 Thou/mm3 (0.00-0.00); Lymphocytes # (Auto) 1.4 Thou/mm3 (1.0-4.8); Lymphocytes % (Auto) 13 % (10-50); Mean Corpuscular HGB Conc 32.9 g/dl (31.0-37.0); Mean Corpuscular Hemoglobin 28.4 pg (25.0-35.0); Mean Corpuscular Volume 86 fL (80-100); Monocytes # (Auto) 0.7 Thou/mm3 (0.0-0.8); Monocytes % (Auto) 6 % (0-12); Neutrophils # (Auto) 8.4 Thou/mm3 (1.8-7.7); Neutrophils % (Auto) 79 % (37-80); Nucleated Red Blood Cell # 0.00 Thou/mm3 (0.00-0.00); Nucleated Red Blood Cell % 0 /100 WBC (0); Platelet Count 319 Thou/mm3 (140-440); RDW Standard Deviation 39.8 fL (35.1-43.9); Red Blood Count 5.64 Miln/mm3 (4.50-5.90); White Blood Count 10.6 Thou/mm3 (3.8-10.6)
[2025-09-10 19:53] LABS: Amphetamine/Methamp Scrn,U Positive (Negative); Barbiturate Screen,Urine Negative (Negative); Benzodiazepines Screen,Urine Negative (Negative); Benzoylecgonine Screen, Ur Negative (Negative); Fentanyl Screen,Urine Negative (Negative); Opiate Screen,Urine Negative (Negative); THC Screen,Urine Positive (Negative)
[2025-09-10 19:56] LABS: Alanine Aminotransferase 29 U/L (10-49); Albumin, Serum 5.5 gm/dL (3.5-5.0); Albumin/Globulin Ratio 2.0 (1.2-2.2); Alcohol, Blood Medical < 3.0 mg/dL (0-10.0); Alkaline Phosphatase 62 U/L (46-116); Anion Gap 9 (7-16); Aspartate Amino Transferase 18 U/L (0-34); BUN/Creatinine Ratio 8 Ratio (12-20); Bilirubin,Direct 0.3 mg/dL (0.0-0.3); Bilirubin,Total 0.8 mg/dL (0.3-1.2); Blood Urea Nitrogen 6 mg/dL (9-23); Calcium 10.0 mg/dL (8.3-10.6); Calcium (Corrected) 10.0 mg/dL (8.5-10.1); Carbon Dioxide 30.6 mMol/L (20.0-31.0); Chloride 101 mMol/L (98-107); Creatinine (Component) 0.8 mg/dL (0.6-1.3); Globulin 2.7 gm/dL (2.3-3.5); Glucose 90 mg/dL (74-106); Lipase 26 U/L (12-53); Magnesium 1.9 mg/dL (1.6-2.6); Osmolality,Calculated 278 (275-295); Potassium 3.7 mMol/L (3.4-5.1); Sodium 141 mMol/L (136-145); Total Protein 8.2 gm/dL (5.7-8.2); eGFR > 60 See Note
== END 2025-09-10 22:25 | disposition home or self-care (01) ==
PROVIDERS: Emergency Provider Emergency Medicine; PCP Family Medicine
DX: F15.129 Other stimulant abuse with intoxication, unspecified (principal); R10.31 Right lower quadrant pain; H91.90 Unspecified hearing loss, unspecified ear
CPT/HCPCS: 36415; 70450; 74176; 80053; 80307; 80320; 82248; 83690; 83735; 85025; 99283; G0480